=== PATIENT | female | born 1955 | race Caucasian/White ===

== ENCOUNTER → 2018-07-09 | Outpatient (CLI) | payer BC | LOC: FIMAGING 12:39 | PROVIDERS: ATTEND Internal Medicine Hematology & Oncology | DX: D47.2 Monoclonal gammopathy (principal); J93.9 Pneumothorax, unspecified ==

== ENCOUNTER → 2018-07-12 | Outpatient (CLI) | payer BC | LOC: FIMAGING 10:20 | PROVIDERS: ATTEND Internal Medicine | DX: J93.9 Pneumothorax, unspecified (principal); C90.00 Multiple myeloma not having achieved remission ==

== ENCOUNTER → 2018-07-16 | Outpatient (CLI) | payer BC | LOC: FIMAGING 10:27 ==

== ENCOUNTER → 2018-08-02 | Outpatient (CLI) | payer BC | LOC: FIMAGING 10:50 | PROVIDERS: ATTEND Internal Medicine Hematology & Oncology | DX: J93.11 Primary spontaneous pneumothorax (principal) ==

== ENCOUNTER → 2018-08-25 | Outpatient (CLI) | payer BC | LOC: CIMAGING 14:59 | PROVIDERS: ATTEND Internal Medicine Pulmonary Disease | DX: Z09 Encounter for follow-up examination after completed treatment for conditions other than malignant neoplasm (principal); J93.11 Primary spontaneous pneumothorax | CPT/HCPCS: 71046-PO ==

== ENCOUNTER → 2018-09-03 | Outpatient (CLI) | payer BC | LOC: CIMAGING 08:00 | PROVIDERS: ATTEND Internal Medicine Pulmonary Disease | DX: J93.83 Other pneumothorax (principal); J98.11 Atelectasis | CPT/HCPCS: 71250-PO ==

== ENCOUNTER 2018-09-23 05:37 | Inpatient (IN) | payer BC ==
[2018-09-23] MEDS ORDERED: ceFAZolin 2 GM/DEXTROSE 100 ML IV ONE (05:48)
[2018-09-23] MEDS ORDERED: LR 1,000 ML IV ONE (05:50)
[2018-09-23] MEDS ORDERED: BUPIVACAINE/EPI 0.5% 30 ML SDV ONE (06:36)
[2018-09-23] MEDS ORDERED: TALC 3 GM INTRAPLEURAL VIAL ONE (06:37)
--- NOTE | 2018-09-23 06:53 | PDANEPAE ---
ANE History of Present Illness spontaneous pneumothorax ANE Past Medical History - Cardiovascular History Hx Hypertension: No Hx Arrhythmias: No Hx Chest Pain: No Hx Coronary Artery / Peripheral Vascular Disease: No Hx CHF / Valvular Disease: No Hx Palpitations: No - Pulmonary History Hx COPD: No Hx Asthma/Reactive Airway Disease: No Hx Recent Upper Respiratory Infection: No Hx Oxygen in Use at Home: No Hx Sleep Apnea: No Sleep Apnea Screening Result - Last Documented: Negative Pulmonary History Comment: currently has pneumothorax - Neurologic History Hx Cerebrovascular Accident: No Hx Seizures: No Hx Dementia: No - Endocrine History Hx Diabetes: No Hypothyroid: Yes Hyperthyroid: No Obesity: no - Renal History Hx Renal Disorders: No - Liver History Hx Hepatic Disorders: No - Neurological & Psychiatric Hx Hx Neurological and Psychiatric Disorders: No - Cancer History Hx Cancer: No - Congenital Disorder History Hx Congenital Disorders: No - GI History GERD: no Hx Gastrointestinal Disorders: No - Other Health History Other Health History: [facility] [place]. None allergic rhinitis. pin hole to left ear [place] - Chronic Pain History Chronic Pain: No - Surgical History Prior Surgeries: D&C IN LAST 5 YRS. bilat ACL repairs ANE Review of Systems Review of systems is: negative Review of Systems: - Exercise capacity METS (RN): 4 METS ANE Patient History - Allergies Allergies/Adverse Reactions: No Known Allergies Allergy (Verified 09/15/18 13:27) - Home Medications Home medications: home medication list seen and reviewed Home Medications: Aspirin [Aspirin 81mg (*)] 81 mg PO HS 09/15/18 [Last Taken 09/19/18 21:00] Azelaic Acid [Finacea] 1 chelsey TP DAILY 09/15/18 [Last Taken 09/22/18 08:00] Cyanocobalamin [Vitamin B12 (*)] 1,000 mcg PO DAILY 09/15/18 [Last Taken 08:00] Fluocinonide 0.05% [Lidex 0.05% Cream (RX)] 1 chelsey TP DAILY 09/15/18 [Last Taken 08/30/18] Fluticasone Nasal [Flonase Nasal [place] (RX)] 1 sprays NASAL DAILY PRN 09/15/18 [ Last Taken 09/23/18 05:30] Herbals/Supplements -Info Only 1 ea PO DAILY 09/15/18 [Last Taken 09/19/18 08:00 ] Levothyroxine [Synthroid 25 mcg (*)] 25 mcg PO BRAGA@09/15/18 [Last Taken 05:30] Levothyroxine [Synthroid 50 mcg (*)] 50 mcg PO MOTUWETHFRSA@09/15/18 [Last Taken 09/23/18 04:30] Loratadine [Claritin 10 mg] 10 mg PO DAILY PRN 09/15/18 [Last Taken 09/22/18 12: 30] Multivitamins [Multivitamin (*)] 1 each PO DAILY 09/15/18 [Last Taken 09/19/18 08:00] Pyridoxine HCl [Vitamin B-6 100 mg (*)] 100 mg PO DAILY 09/15/18 [Last Taken 11/03 08:00] - NPO status NPO Status: no food or drink >8 hours NPO Since - Liquids (Date): 09/23/18 NPO Since - Liquids (Time): 04:30 NPO Since - Solids (Date): 09/22/18 NPO Since - Solids (Time): 18:30 - Anes Hx Anes Hx: no prior problems - Smoking Hx Smoking Status: Never smoked - Family Anes Hx Family Anes Hx: none Family Hx Anesthesia Complications: none ANE Labs/Vital Signs - Labs Result Diagrams: 09/23/18 06:10 - Vital Signs Blood Pressure: 132/75 Heart Rate: 53 Respiratory Rate: 14 O2 Sat (%): 95 Height: 167.64 cm Weight: 81.647 kg ANE Physical Exam - Airway Neck exam: FROM Mallampati Score: Class 2 Mouth exam: normal dental/mouth exam - Pulmonary Pulmonary: no respiratory distress - Cardiovascular Cardiovascular: regular rate and rhythym, no murmur, rub, or gallop - ASA Status ASA Status: II ANE Anesthesia Plan Anesthesia Plan: general endotracheal anesthesia, epidural Lines/Monitors: arterial line Specialized Airway: double lumen tube
[2018-09-23] MEDS ORDERED: MIDAZOLAM 2 MG/2 ML VIAL IVP ONE (07:00)
[2018-09-23] MEDS ORDERED: fentaNYL 250 MCG/5 ML INJ ONE (07:04)
[2018-09-23] MEDS ORDERED: ROCURONIUM 100 MG/10 ML VIAL ONE (07:04)
[2018-09-23] MEDS ORDERED: PROPOFOL/EMULSION 500 MG/50 ML BOTTLE IV ONE (07:04)
[2018-09-23] MEDS ORDERED: LIDOCAINE 2% 2 ML INJ ONE (07:05)
--- NOTE | 2018-09-23 07:08 | PDHPUP ---
History & Physical Update H&P update statement: This history and physical update is based on an assessment of the patient which was completed after admission or registration (within 24 hours), but prior to the surgery/procedure. H&P update: H&P reviewed & patient examined, no change in patient's condition since H&P completed
[2018-09-23] MEDS ORDERED: ROPIVACAINE HCL 150 MG/30 ML INJ ONE (08:55)
[2018-09-23] MEDS ORDERED: ePHEDrine SULFATE 25 MG/5 ML SYR ONE (09:24)
[2018-09-23] MEDS ORDERED: LR 500 ML IV PRN (10:05)
[2018-09-23] MEDS ORDERED: PHENYLEPHRINE HCL 100 MCG/ML SYR IVP PRN (10:05)
[2018-09-23] MEDS ORDERED: fentaNYL 100 MCG/2 ML INJ IVP PRN (10:05)
[2018-09-23] MEDS ORDERED: NALOXONE HCL 0.4 MG/ML INJ IVP PRN ×2 (10:05→14:30)
--- NOTE | 2018-09-23 10:05 | POSTANESTH ---
Post Anesthetic Evaluation Cardiovascular Status: Normal, Stable Respiratory Status: Normal, Stable Level of Consciousness/Mental Status: Can Participate in Eval Pain Control: Adequate, Prn Tx Ordered Nausea/Vomiting Control: Adequate, Prn Tx Ordered Complications Possibly Related to Anesthesia: None Noted
[2018-09-23] MEDS ORDERED: NEOSTIGMINE METHYLSULFATE 10 MG/10 ML MDV ONE (10:07)
[2018-09-23] MEDS ORDERED: GLYCOPYRROLATE 0.2 MG/1 ML VIAL ONE ×2 (10:07)
[2018-09-23] MEDS ORDERED: METOCLOPRAMIDE 10 MG/2 ML VIAL IV PRN (10:10)
[2018-09-23] MEDS ORDERED: ONDANSETRON 4 MG/2 ML VIAL IVP PRN ×3 (10:10→14:13)
[2018-09-23] MEDS ORDERED: diphenhydrAMINE 25 MG CAP PO PRN ×2 (10:11→14:30)
[2018-09-23] MEDS ORDERED: ONDANSETRON 4 MG/2 ML VIAL ONE (10:44)
[2018-09-23] MEDS ORDERED: HYDROmorphONE/DILAUDID 1 MG/ML INJ IVP PRN (10:48)
[2018-09-23] MEDS ORDERED: oxyCODONE IR 5 MG TAB PO PRN (10:51)
[2018-09-23] MEDS ORDERED: ONDANSETRON DISINTEGRATING 4 MG TAB PO PRN (10:52)
[2018-09-23] MEDS ORDERED: FLUTICASONE NASAL 120 SPRAYS/16 GM MDI EACHNARE PRN ×2 (10:54→17:00)
[2018-09-23] MEDS: fentaNYL 2MCG/ML&BUP 0.0625% in 100ML NS EP SCH (11:05)
[2018-09-23] MEDS ORDERED: PROMETHAZINE HCL 25 MG/ML INJ ONE (11:11)
[2018-09-23] MEDS: PROMETHAZINE HCL 25 MG/ML INJ IVP PRN ×2 (11:27→11:59)
--- NOTE | 2018-09-23 12:42 | POSTOPPROG ---
Post Op Note Date of Operation: 09/23/18 Surgeon: Antoine Coffman Tutor: Marck Anesthesiologist: Kathleen Anesthesia: GET(General Endotracheal) Pre-op Diagnosis: Right spontaneous pneumothorax Post-op Diagnosis: same, mediastinal hernia Indication: Same Procedure: R VATS, decortication, reduction of mediastinal hernia, pleurodesis Findings: Mediastinal hernia, PANTERA courses across RUL, several bands of scar tissue Inf/Abcess present in the surg proc area at time of surgery?: No Depth: Organ Space EBL: Minimal Bowel Protocol: N/A Clean Closure Performed: N/A Drains: Other (chest tube)
--- NOTE | 2018-09-23 13:03 | CPEKG ---
Test Reason : OPEN Blood Pressure : / mmHG Vent. Rate : 051 BPM Atrial Rate : 051 BPM P-R Int : 219 ms QRS Dur : 088 ms QT Int : 480 ms P-R-T Axes : 063 005 032 degrees QTc Int : 443 ms Sinus rhythm Ventricular premature complex Borderline prolonged VA interval Confirmed by Chris Ramey ([id number]) on 09/23/2018 1:03:18 PM Referred By: Antoine Coffman Confirmed By:Chris Ramey
[2018-09-23] MEDS ORDERED: fentaNYL 2MCG/ML&BUP 0.0625% in 100ML NS EP SCH (14:30)
[2018-09-23] MEDS ORDERED: METOCLOPRAMIDE 10 MG/2 ML VIAL IVP PRN (14:30)
[2018-09-23] MEDS: KETOROLAC 15 MG/1 ML SDV IVP SCH ×2 (15:08→17:54)
[2018-09-23] MEDS: NS 1,000 ML IV SCH (17:15)
[2018-09-23] MEDS: CETIRIZINE 10 MG TAB PO PRN (17:54)
--- NOTE | 2018-09-23 18:44 | PDMN ---
Medical Necessity Medical necessity: Pt meets inpt criteria per MD order and [id number], Thoracotomy with Biopsy or Miscellaneous Procedures by Video-Assisted Thoracic Surgery (VATS), Thoracoscopy w/decortication ( IP only list), reduction of mediastinal hernia, pleurodesis, and chest tube placement. 63 y/o admitted for surgical management of R pneumothorax which she has had for unknown length of time, found to have mediastinal hernia, PANTERA courses across RUL, and several bands of scar tissue, admitted for above surgery and post-op care.
[2018-09-23] MEDS: ASPIRIN 81 MG CHEWABLE TAB PO SCH (20:53)
--- NOTE | 2018-09-23 22:41 | GOP ---
[f rep st] OPERATIVE REPORT DATE OF OPERATION: 09/23/2018 SURGEON: Antoine Coffman MD CLINICAL LEADER: Hazel Acharya, nurse practitioner. ANESTHESIOLOGIST: Dr. Wang. PREOPERATIVE DIAGNOSIS: Chronic right pneumothorax. POSTOPERATIVE DIAGNOSIS: Chronic right pneumothorax plus mediastinal lung hernia. PROCEDURE PERFORMED: Right video-assisted thoracoscopic surgery decortication and pleurodesis with r eduction of mediastinal hernia. Also fiberoptic bronchoscopy. FINDINGS: The patient was found to have fibrous bands in the right chest which appeared to localize and compress a significant portion of the right upper lobe which was adherent within the hernia into the mediastinum. The internal mammary artery was markedly enlarged and prominent in helping to creat e this hernia defect. The lung itself appeared to be normal except for this chronic atelectatic port ion, which was in the hernia sac. ESTIMATED BLOOD LOSS: Blood loss was less than 20 cc. DESCRIPTION OF PROCEDURE: The patient was taken to the operating room where she received a satisfact ory general endotracheal anesthesia by Dr. Wang. She was placed in the left lateral decubitus positi on, prepped and draped in the usual sterile fashion. A short incision was made in the mid axillary l ine on the 7th intercostal space. A trocar was introduced. Prior to the thoracoscopy trocar inserti on, the patient had been bronchoscoped revealing no endobronchial lesions in the right side of the eboni ng or the left side for that matter. The bronchoscope was withdrawn and the patient was then placed in the left lateral decubitus position. A thoracoscope was introduced through this trocar site and 3 other trocars were eventually placed in the right chest. The lung was mobilized. An adhesive band was encountered. This was divided with electrocautery, having to free up and expose the superior por tion of the right upper lobe. This portion of the lung was adherent and an apparent mediastinal yesenia ia with chronic adhesions. These were freed up with electrocautery in a careful the sharp dissection until that segment of the lung could be freed up and delivered out of this herniation. The scar tis radha in the lung service was divided with electrocautery and freed up and the lung was then re-expande d and appeared to inflate completely well. Further decortication was done to allow complete expansio n. The lung was then dropped back down and the pleura was roughened up with mechanical abrasion and then a fine mist of talcum powder was placed in the right chest. Two #24 chest tubes were brought in through to the anterior trocar sites and secured to the skin with 2-0 silk sutures and connected to a Pleur-evac drainage system. The wounds were all infiltrated with 0.5% Marcaine. The remaining tro car sites were closed with 4-0 Monocryl subcuticular stitch for the skin and the wounds were dressed. She tolerated the procedure well. COMPLICATIONS: There were no complications. Copy requested to: Dr. Starla Thomas /[id number]/[facility] [place]
[2018-09-24] MEDS: fentaNYL 2MCG/ML&BUP 0.0625% in 100ML NS EP SCH ×2 (02:43→15:19)
[2018-09-24] MEDS: NS 1,000 ML IV SCH (05:19)
[2018-09-24] MEDS: LEVOTHYROXINE 50 MCG TAB PO SCH (05:52)
[2018-09-24 05:55] LABS: PLATELET COUNT 190 10^3/uL (150-400)
[2018-09-24] MEDS: AZELAIC ACID TP SCH (08:23)
[2018-09-24] MEDS: CYANO/VITAMIN B12 1000 MCG TAB PO SCH (08:25)
[2018-09-24] MEDS: PYRIDOXINE HCL 100 MG TAB PO SCH (08:25)
[2018-09-24] MEDS: DC NARCS MISC SCH (08:28)
[2018-09-24] MEDS ORDERED: FLUOCINONIDE 0.05% 15 GM CREAM TP PRN (09:00)
--- NOTE | 2018-09-24 09:02 | SOAPPROG ---
SOAP Progress Note Assessment/Plan: Assessment/plan: 63 y/o F s/p R VATS, decortication and pleurodesis for spontaneous pneumo POD #1 Found to have mediastinal hernia Postop pain. Well controlled with epidural. Chest xray reveals fully expanded lung. Chest tubes with small air leak. Minimal drainage. Rawls. Will discuss with anesthesia. May need to keep it as long as epidural is in place. VTE ppx. Lovenox today. Dispo: pending clinical course. Will need chest tube for at least 1-2 more days. S: Doing well overall. Pain controlled. O: Alert Afebrile RRR CTAB, no increased wob, chest tubes in place with small air leak. Abdomen soft, nontender 09/24/18 08:58 Objective: Vital Signs Temp Pulse Resp BP Pulse Ox 36.8 C 64 16 116/71 97 09/24/18 08:00 09/24/18 08:00 09/24/18 08:00 09/24/18 08:00 09/24/18 08:00 Laboratory Results 09/24/18 05:13 09/23/18 09/24/18 09/25/18 05:59 05:59 05:59 Intake Total 1428.5 Output Total 2009 Balance -581.5 ICD10 Worksheet Patient Problems: Problems Problem Status Onset Pneumothorax Acute - ICD10 Problem Qualifiers (1) Pneumothorax
[2018-09-24] MEDS: ENOXAPARIN 40 MG/0.4 ML SYR SC SCH (10:56)
--- NOTE | 2018-09-24 11:12 | PDPAINCON ---
Pain Management Consultation Patient referred by : Augustus - Subjective Pain at rest (/10): 0 Pain with activity (/10): 1 Pain is: no pain at all Side effects include: itchiness (however tolerable) - Objective Technique: continuous epidural Site: thoracic Continuous infusion: bupivicaine Catheter site: clean, dry, intact, no erythema/edema/exudate Sensory and motor exam: consistent with block, dermatomal level (T5-T10) - Assessment/Plan Assessment/Plan: pain well-controlled, continue current mgmt (Pain very well controlled with epidural. Continue. Will follow.)
[2018-09-24] MEDS: MULTIVITAMINS 1 EACH TAB PO SCH (12:14)
[2018-09-24] MEDS: ACETAMINOPHEN 325 MG TAB PO PRN ×2 (15:19→19:51)
--- NOTE | 2018-09-24 16:28 | ASMTCMCOM ---
CM Note CM Note Notes: Pt is a 63 y/o female admitted for chronic right pneumothorax. Pt had surgery w/ Dr. Coffman. CM met w/ pt and introduced self. Pt currently have drains in. Pt reports that she has been walking around without any trouble. Pt does not anticipate needing any services at this time. No therapies ordered. CM available for changes. Plan: Independent Date Signed: 09/24/2018 04:27 PM Electronically Signed By:TUNG Sheridan
[2018-09-24] MEDS: CETIRIZINE 10 MG TAB PO PRN (19:51)
[2018-09-24] MEDS: ASPIRIN 81 MG CHEWABLE TAB PO SCH (20:25)
[2018-09-25] MEDS: fentaNYL 2MCG/ML&BUP 0.0625% in 100ML NS EP SCH ×2 (03:09→17:19)
[2018-09-25] MEDS: LEVOTHYROXINE 50 MCG TAB PO SCH (04:24)
[2018-09-25] MEDS: NS 1,000 ML IV SCH (08:35)
--- NOTE | 2018-09-25 09:00 | SOAPPROG ---
SOAP Progress Note Assessment/Plan: Assessment: FEELS GOOD/COMFORTABLE/VITAL SIGNS STABLE/LOW-GRADE FEVER CHEST X-RAY WELL EXPANDED WITH SOME RIGHT UPPER LOBE ATELECTASIS HEENT NONICTERIC CHEST CLEAR AND SYMMETRIC COR REGULAR RHYTHM ABDOMEN SOFT NONTENDER NO AIR LEAK AND DECREASING SEROUS DRAINAGE FROM CHEST TUBE Plan: CONTINUE CHEST TUBE SUCTION AND EPIDURAL UNTIL AFEBRILE/POSSIBLY HOME TOMORROW 09/25/18 08:59 Objective: Vital Signs Temp Pulse Resp BP Pulse Ox 37.9 C 79 16 119/75 94 09/25/18 08:00 09/25/18 08:00 09/25/18 08:00 09/25/18 08:00 09/25/18 08:00 Laboratory Results 09/24/18 05:13 09/24/18 09/25/18 09/26/18 05:59 05:59 05:59 Intake Total 1428.5 2450 Output Total 2009 5140 450 Balance -581.5 -1370 -450 ICD10 Worksheet Patient Problems: Problems Problem Status Onset Pneumothorax Acute
[2018-09-25] MEDS: ACETAMINOPHEN 325 MG TAB PO PRN ×2 (09:07→15:26)
[2018-09-25] MEDS: CYANO/VITAMIN B12 1000 MCG TAB PO SCH (09:07)
[2018-09-25] MEDS: PYRIDOXINE HCL 100 MG TAB PO SCH (09:07)
[2018-09-25] MEDS: AZELAIC ACID TP SCH (09:09)
[2018-09-25] MEDS: ENOXAPARIN 40 MG/0.4 ML SYR SC SCH (09:09)
--- NOTE | 2018-09-25 11:10 | PDPAINCON ---
Pain Management Consultation Patient referred by : Auugstus - Subjective Pain at rest (/10): 0 Pain with activity (/10): 1 Pain is: low, well controlled Activity: able to ambulate - Objective Technique: continuous epidural Site: thoracic Continuous infusion: bupivicaine Catheter site: clean, dry, intact Sensory and motor exam: consistent with block Vital signs: stable - Assessment/Plan Assessment/Plan: pain well-controlled, continue current mgmt (Pt doing well. Thoracic epidural working very well. Plan to d/c chest tube tomorrow. Will d/ c epidural after chest tubes removed. )
[2018-09-25] MEDS: DC NARCS MISC SCH (13:26)
[2018-09-25] MEDS: MULTIVITAMINS 1 EACH TAB PO SCH (14:55)
--- NOTE | 2018-09-25 15:22 | ASMTCMCOM ---
CM Note CM Note Notes: CM reviewed chart. Chest tube still in place. Per Dr. Coffman, pt likely able to go home tomorrow. No therapies ordered, no needs identified at this time. CM D/C plan: Independent to home. Date Signed: 09/25/2018 03:22 PM Electronically Signed By:Lisa Alanis
[2018-09-25] MEDS: ASPIRIN 81 MG CHEWABLE TAB PO SCH (20:35)
[2018-09-26 05:12] LABS: PLATELET COUNT 158 10^3/uL (150-400)
[2018-09-26] MEDS ORDERED: LEVOTHYROXINE 25 MCG TAB PO SCH (06:00)
[2018-09-26] MEDS: CYANO/VITAMIN B12 1000 MCG TAB PO SCH (08:52)
[2018-09-26] MEDS: ENOXAPARIN 40 MG/0.4 ML SYR SC SCH (08:53)
[2018-09-26] MEDS: PYRIDOXINE HCL 100 MG TAB PO SCH (08:57)
--- NOTE | 2018-09-26 11:18 | ASMTCMCOM ---
CM Note CM Note Notes: CM spoke with Dr. Coffman this morning. Pt has been having fevers so he is not sure she is appropriate to go home today, but he will see her and decide. Chest tubes are still in place. CM met with pt in her room. She lives at home with Richard [phone] and is independent. No therapies ordered. CM will continue to follow. JAYDA D/C plan: Independent to home Date Signed: 09/26/2018 11:16 AM Electronically Signed By:Lisa Alanis
--- NOTE | 2018-09-26 13:28 | SOAPPROG ---
SOAP Progress Note Assessment/Plan: Assessment: FEELS GOOD/COMFORTABLE/VITAL SIGNS STABLE/LOW-GRADE FEVER CHEST X-RAY WELL EXPANDED WITH SOME RIGHT UPPER LOBE ATELECTASIS HEENT NONICTERIC CHEST CLEAR AND SYMMETRIC COR REGULAR RHYTHM ABDOMEN SOFT NONTENDER NO AIR LEAK AND DECREASING SEROUS DRAINAGE FROM CHEST TUBE Plan: CONTINUE CHEST TUBE SUCTION AND EPIDURAL UNTIL AFEBRILE/POSSIBLY HOME TOMORROW 09/25/18 08:59 09/26/18 13:27 BS EQUAL/ NO AIR LEAK/ DRAINAGE <100/ LOW GRADE TEMP CXR WELL EXPANDED PLAN WEAN OFF EPIDURAL/ SPUTUM CULTURE/ DC PARKER AND TUBES IN AM 09/26/18 13:28 Objective: Vital Signs Temp Pulse Resp BP Pulse Ox 37.9 C 69 16 108/84 H 92 09/26/18 11:03 09/26/18 11:03 09/26/18 11:03 09/26/18 11:03 09/26/18 11:03 Microbiology 09/25/18 17:35 - Final Sputum, Expectorated Laboratory Results 09/26/18 04:50 09/25/18 09/26/18 09/27/18 05:59 05:59 05:59 Intake Total 2450 1600 Output Total 3820 4500 900 Balance -1370 -2900 -900 ICD10 Worksheet Patient Problems: Problems Problem Status Onset Pneumothorax Acute
--- NOTE | 2018-09-26 13:37 | ASMTCMCOM ---
CM Note CM Note Notes: Dr. Coffman evaluated pt this afternoon. He did not remove chest tubes. Wants to continue chest tubes until pt is afebrile. CM will continue to follow. CM D/C plan: Independent to home Date Signed: 09/26/2018 01:36 PM Electronically Signed By:Lisa Alanis
--- NOTE | 2018-09-26 14:31 | PDPAINCON ---
Pain Management Consultation Patient referred by Dr.: Augustus - Subjective Pain at rest (/10): 0 Pain with activity (/10): 1 Pain is: low, well controlled Side effects include: nausea Activity: able to ambulate - Objective Technique: continuous epidural Site: thoracic Continuous infusion: bupivicaine Catheter site: clean, dry, intact, no erythema/edema/exudate Sensory and motor exam: consistent with block Vital signs: stable - Assessment/Plan Assessment/Plan: pain well-controlled, continue current mgmt (Pt doing well. Had some nausea last night. Epidural turned down from [address] Coff[address]. Percocet PRN given. Chest tubes will most likely come out tomorrow at which time epidural will be turned off. Lovenox will be held tomorrow morning so epidural can be pulled. )
[2018-09-26] MEDS: ACETAMINOPHEN 325 MG TAB PO PRN (15:37)
[2018-09-26] MEDS: AZELAIC ACID TP SCH (15:38)
[2018-09-26] MEDS: DC NARCS MISC SCH (15:39)
[2018-09-26] MEDS: MULTIVITAMINS 1 EACH TAB PO SCH (16:05)
[2018-09-26] MEDS: KETOROLAC 15 MG/1 ML SDV IVP SCH ×2 (17:33→23:15)
[2018-09-26] MEDS: ASPIRIN 81 MG CHEWABLE TAB PO SCH (20:00)
[2018-09-27] MEDS: KETOROLAC 15 MG/1 ML SDV IVP SCH ×2 (05:29→12:22)
[2018-09-27] MEDS: LEVOTHYROXINE 50 MCG TAB PO SCH (05:30)
[2018-09-27] MEDS: fentaNYL 2MCG/ML&BUP 0.0625% in 100ML NS EP SCH (06:09)
--- NOTE | 2018-09-27 06:44 | PDPAINCON ---
Pain Management Consultation Patient referred by : Augustus - Subjective Pain at rest (/10): 1 Pain with activity (/10): 1 Pain is: low, well controlled Side effects include: nausea Activity: able to ambulate - Objective Technique: continuous epidural Continuous infusion: bupivicaine Continuous rate (ml/hr): 3 Bolus (ml): 4 Lockout interval (mins): 15 Catheter site: clean, dry, intact, no erythema/edema/exudate Vital signs: stable - Assessment/Plan Assessment/Plan: pain well-controlled, continue current mgmt Additional comments: air in line error after bag was changed, epidural disconnected, tubing primed, and reconnected and restarted. No complications. Chest tubes likely d/c'd today, can d/c epidural afterwards, lovenox held
--- NOTE | 2018-09-27 09:06 | SOAPPROG ---
SOAP Progress Note Assessment/Plan: Assessment/plan: 63 y/o F s/p R VATS, decortication and pleurodesis for spontaneous pneumo POD #4 Found to have mediastinal hernia Pt feeling much better today. Pain controlled. Chest tubes removed. Chest xray ordered for 1000. Epidural and luna to come out today as well. Lovenox held. Dispo: likely home later today. S: No complaints. O: Alert Afebrile RRR CTAB, no increased wob, No air leak Abdomen soft, nontender 09/27/18 09:04 Objective: Vital Signs Temp Pulse Resp BP Pulse Ox 36.9 C 70 18 118/57 L 92 09/27/18 07:57 09/27/18 07:57 09/27/18 07:57 09/27/18 07:57 09/27/18 07:57 Microbiology 09/25/18 17:35 - Final Sputum, Expectorated Laboratory Results 09/26/18 04:50 09/26/18 09/27/18 09/28/18 05:59 05:59 05:59 Intake Total 1600 550 Output Total 4500 2660 Balance -2900 -2110 ICD10 Worksheet Patient Problems: Problems Problem Status Onset Pneumothorax Acute - ICD10 Problem Qualifiers (1) Pneumothorax
[2018-09-27] MEDS: CYANO/VITAMIN B12 1000 MCG TAB PO SCH (10:01)
[2018-09-27] MEDS: AZELAIC ACID TP SCH (10:01)
[2018-09-27] MEDS: PYRIDOXINE HCL 100 MG TAB PO SCH (10:01)
[2018-09-27] MEDS: DC NARCS MISC SCH (10:05)
--- NOTE | 2018-09-27 11:53 | PDPAINCON ---
Pain Management Consultation Patient referred by : Augustus - Subjective Pain at rest (/10): 0 Pain with activity (/10): 1 Pain is: low, well controlled Activity: able to ambulate - Objective Technique: continuous epidural Site: thoracic Continuous infusion: bupivicaine Catheter site: clean, dry, intact Sensory and motor exam: block has resolved, no apparent ill effects Vital signs: stable - Assessment/Plan Assessment/Plan: other (Pt doing well. Chest tubes d/c ed this morning. Epidural infusion turned off around 0930. Block has mostly worn off. Epidural catheter pulled. Tip intact. Ok to restart lovenox at 1545.)
[2018-09-27] MEDS: MULTIVITAMINS 1 EACH TAB PO SCH (12:23)
[2018-09-27 16:09] VITALS: BP 132/86
--- NOTE | 2018-09-27 16:26 | ASMTLACE ---
LACE Length of stay for Answers: 4-6 days current admission Acuity / Level of Answers: Yes Care: Did the patient have an inpatient admission? Comorbidities - select Answers: Other Notes: Hypothyroid all that apply # of Emergency department Answers: 0 visits in the last 6 months Score: 8 Date Signed: 09/27/2018 04:25 PM Electronically Signed By:Colleen Sheehan RN
--- NOTE | 2018-10-06 19:06 | GDS ---
[f rep st] DISCHARGE SUMMARY DISCHARGE DIAGNOSIS: Right pneumothorax. CONSULTATIONS: EKG reading by Dr. Ramey. PROCEDURES: Right video-assisted thoracoscopic surgery, decortication and pleurodesis with reduction of mediastinal hernia. In addition, fiberoptic bronchoscopy was performed. INTRAOPERATIVE FINDINGS: The patient was found to have fibrous bands in the right chest which appear ed to localize and compress a significant portion of the right upper lobe which was adherent within t he hernia into the mediastinum. The internal mammary artery was markedly enlarged and prominent and helping to create this hernia defect. The lung itself appeared to be normal except for this chronic atelectatic portion, which was in the hernia sac. SPECIAL TESTS: Multiple chest x-rays. For full details, please see reports. HOSPITAL COURSE: This is a 63-year-old female who was incidentally found to have a chronic right pne umothorax. She was taken to the operating room to undergo a planned right VATS surgery for decortica tion and pleurodesis. The patient tolerated the procedure well, although the patient complained of i ncreased chest pain following surgery. A STAT EKG was performed that was normal. A chest x-ray afte r surgery revealed resolution of right pneumothorax with chest tubes in the correct position. The pa tient's pain was ultimately controlled with IV fentanyl. She was transferred to the floor without is radha. The following day, the patient had an x-ray that revealed a fully expanded right lung. Her jeniffer n was well controlled with thoracic epidural. She had a Rawls in place due to the epidural. Lovenox was ordered on postoperative day #1. Her chest sounds remained clear and equal. On postoperative d ay #3, the patient experienced a low-grade fever and a sputum culture was performed. This was negati ve. The following day, on postoperative day #4, the patient did not have a fever and felt much impro angela. Her chest tubes were removed this day. A repeat chest x-ray revealed a very small apical pneum othorax. Her epidural and Rawls were also removed that day. She was ultimately discharged home in g ood condition on postoperative day #4. She was advised to follow up in our office the following week and she had a chest x-ray prior to her visit. She was advised to keep her chest tube dressing on fo r 5 days. She was provided a prescription for oxycodone for pain and was advised that she could take ibuprofen as well. She is advised to call with fever, chills, or any worsening symptoms. /[id number]/[facility]
== END 2018-09-27 17:25 | disposition home or self-care (01) | DRG 163 ==
LOC: F3E 05:37 → OBSVTOIN 10:42 → F3E 14:04
PROVIDERS: ADMIT Surgery; ATTEND Surgery
DX: J93.81 Chronic pneumothorax (principal); J98.59 Other diseases of mediastinum, not elsewhere classified; E03.9 Hypothyroidism, unspecified
CPT/HCPCS: J0690; J1650; J1885; J2250; J2405; J2550; J2704; J2795; J3010

== ENCOUNTER → 2018-10-01 | Outpatient (CLI) | payer BC | LOC: FIMAGING 12:45 | PROVIDERS: ATTEND Internal Medicine Pulmonary Disease | DX: J93.9 Pneumothorax, unspecified (principal) ==

== ENCOUNTER → 2018-11-08 | Outpatient (CLI) | payer BC | LOC: FIMAGING 13:58 ==